=== PATIENT | male | born 1975 | race American Indian/Alaskan Native ===

== ENCOUNTER 2018-04-10 01:00 | Emergency (ER) | payer OTHER ==
--- NOTE | 2018-04-10 04:15 | XRay Report ---
FINAL REPORT EXAM: XR FOREARM RT HISTORY: Pain and deep laceration COMPARISONS: None. FINDINGS: AP and lateral views left forearm Soft tissue swelling and irregularity over the dorsal and ulnar aspect of the mid left forearm. A couple of fine linear radiodensities measuring up to 4 millimeters are present in the soft tissues just dorsal and medial to the mid left ulna. No fracture or gross malalignment. IMPRESSION: Intact left radius and ulna. Mid left forearm soft tissue injury with a couple of 4 millimeter fine linear radiodensities, which may represent foreign bodies.
[2018-04-10] MEDS ORDERED: BOOSTRIX IM ONE (06:58)
[2018-04-10] MEDS ORDERED: NORCO 5/325 PO ONE (06:59)
[2018-04-10] MEDS ORDERED: XYLOCAINE 1%/ EPI 1:100,000 INFILTRATI NR (07:00)
[2018-04-10] MEDS ORDERED: NACL 0.9% 500 ML IR ONE (07:33)
--- NOTE | 2018-04-10 07:33 | Emergency Department Report ---
HPI - General Chief Complaint: Wound/Laceration Time Seen by Provider: 04/10/18 06:30 - HPI HPI: The patient is a 42-year-old male who presents for evaluation of left arm laceration. The patient reports falling approximately 6 hours prior to my arrival in his bathroom, and sustaining laceration from his striking his left forearm on his toilet. He complains of mild constant stinging pain since, exacerbated with movement of the left forearm and wrist. She is unsure of last tetanus immunization. He denies loss of consciousness, trauma to the head, neck pain, chest pain, back pain, abdominal pain, pain to the other extremities. ED Past Medical Hx - Past Medical History Previous Medical History?: No - Surgical History Past Surgical History?: Yes Additional Surgical History: Right lower leg hardware. - Social History Smoking Status: Never Smoker Substance Use Type: None - Medications Home Medications: Home Medications Medication Instructions Recorded Confirmed Last Taken Type Ibuprofen [Motrin] 800 mg PO Q8HR PRN #15 tablet 04/10/18 Unknown Rx cephALEXin [Keflex] 500 mg PO QID #20 capsule 04/10/18 Unknown Rx ED Review of Systems ROS: Stated complaint: LEFT ARM LACERATION Other details as noted in HPI Constitutional: denies: fever ENT: denies: throat or neck pain Respiratory: denies: cough, shortness of breath Cardiovascular: denies: chest pain Endocrine: denies unexplained weight loss or gain Gastrointestinal: denies: abdominal pain, nausea Genitourinary: denies: dysuria Musculoskeletal: reports left forearm pain denies: leg swelling Skin: denies: rash Neurological: denies: headache Hematological/Lymphatic: denies: easy bleeding or easy bruising Psych: denies sadness or hopelessness Physical Exam - Physical Exam Vital Signs: Vital Signs 04/10/18 04/10/18 01:06 01:35 Temperature 98.1 F 98.1 F Pulse Rate 94 H 96 H Respiratory 20 16 Rate Blood Pressure 115/72 115/72 O2 Sat by Pulse 96 98 Oximetry Physical Exam: General: well-nourished, well-developed, no acute distress Head: Normocephalic, atraumatic Eyes: normal sclera ENT: Mucous membranes are pink and moist Neck: trachea midline, neck supple, No neck stiffness, no midline posterior neck tenderness overlying the cervical spinous process Respiratory: Breath sounds equal bilaterally, no wheezing, rales, or rhonchi Cardio: S1 and S2 present, no murmurs, rubs, gallops, capillary refill is brisk Abdomen: Normoactive bowel sounds, soft abdomen, no tenderness Musc: 10 cm laceration to left dorsal forearm present, pain control, sensation, motor function, and pulses intact in the left arm and hand distal to the wound, forearm compartments are soft and pliable, no midline back tenderness Skin: No rash Neuro: Alert oriented 3, no facial drooping, normal speech, no sensation and motor deficit in the arms or legs, 2+ symmetric reflexes on DTR testing bilaterally, no coordination deficit with finger to nose testing, Romberg negative Psych: Normal affect ED Course Vital Signs 04/10/18 04/10/18 01:06 01:35 Temperature 98.1 F 98.1 F Pulse Rate 94 H 96 H Respiratory 20 16 Rate Blood Pressure 115/72 115/72 O2 Sat by Pulse 96 98 Oximetry - Laceration /Wound Repair Left Dorsal Arm Wound Location: upper extremity Wound Length (cm): 10 Wound's Depth, Shape: into muscle, linear Wound Explored: foreign body removed Irrigated w/ Saline (ccs): 500 Betadine Prep?: Yes Anesthesia: 1% Lidocaine Volume Anesthetic (ccs): 10 Wound Repaired With: sutures Suture Size/Type: 3:0, nylon Number of Sutures: 15 Layer Closure?: Yes Deep Layer Suture Size/Type: 3:0, chromic Number Deep Layer Sutures: 5 Sterile Dressing Applied?: Yes ED Medical Decision Making - Medical Decision Making The patient was seen and examined by myself. 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 On initial evaluation, the patient was found to be in no distress. Evaluation orders were placed. The patient is given a total of [place] for his pain. The patient given a tetanus immunization. X-ray of the left forearm is negative for acute fracture or dislocation, but does demonstrate 2 linear lucencies potentially small foreign bodies in the wound. The patient's wound is copiously irrigated. Laceration repair is performed.The patient was reevaluated and reported that their symptoms were markedly improved. The patient is stable for discharge with outpatient follow- up. The patient is given follow-up and return instructions. The patient expressed understanding and agreed with the plan. The patient is discharged in stable condition. Critical care attestation.: If time is entered above; I have spent that time in minutes in the direct care of this critically ill patient, excluding procedure time. ED Disposition Clinical Impression: Laceration of left forearm Qualifiers: Encounter type: initial encounter Qualified Code(s): S51.812A - Laceration without foreign body of left forearm, initial encounter Disposition: TO HOME OR SELFCARE Is pt being admited?: No Does the pt Need Aspirin: No Condition: Stable Instructions: Laceration (ED), Suture Care (ED) Additional Instructions: Have your sutures removed in 14 days. Return to emergency department immediately should you develop fever, redness, swelling, or purulent discharge or drainage from your wound. Referrals: PRIMARY CARE, [Primary Care Provider] - 3-5 Days [facility] [Outside] - 3-5 Days Time of Disposition: 07:33
[2018-04-10] MEDS ORDERED: ANCEF IM ONE (09:40)
[2018-04-10] MEDS ORDERED: WATER FOR INJ (PF) ONE (09:52)
[2018-04-10 10:44] VITALS: BP 134/83
== END 2018-04-10 10:35 | disposition home or self-care (01) ==
LOC: ED 01:00
DX: S51.822A Laceration with foreign body of left forearm, initial encounter (principal); W19.XXXA Unspecified fall, initial encounter; Y93.89 Activity, other specified; Y92.89 Other specified places as the place of occurrence of the external cause; Y99.8 Other external cause status
CPT/HCPCS: 12034; 73090; 90471; 90715; 96372; 99284; J0690